=== PATIENT | female | born 1945 | race Caucasian/White ===

== ENCOUNTER 2016-07-22 12:42 | Emergency (ER) | payer MEDICARE, OTHER, BC ==
[~2016-07-22] VITALS: Ht 154.9 cm; Wt 68.0 kg
[~2016-07-22 12:42] MED LIST: APIX5TAB PO; ATOR10TA15 PO; BYST2.5T2 PO; CLON2TAB PO; E 101000 PO; ESTR.625 PO; FOLI1TAB4 PO; FURO20TA PO; LEVO.05 PO; METH2.5T PO; PANT40TA3 PO; PRED5TAB PO; TRAZ50TA12 PO; VIIB20TA PO; [UNRECOGNIZED DRUG - CODE] PO
[2016-07-22 12:49] VITALS: BP 122/55; PULSE 52; RESP 16; TEMP 97.5; O2SAT 96
[2016-07-22] MEDS ORDERED: HYDR-3516 PO (13:20)
[2016-07-22] MEDS ORDERED: ACYC800T PO (13:22)
[2016-07-22] MEDS ORDERED: HYDR-3534 PO (13:22)
[2016-07-22] MEDS ORDERED: PRED20 PO (13:22)
--- NOTE | 2016-07-22 13:30 | PD ---
HPI Chief Complaint: Back/ Neck Pain or Injury Time Seen by Provider: 13:15 Travel History International Travel<30 days: No Contact w/Intl Traveler<30days: No History of Present Illness HPI 71-year-old female presents to the emergency room for evaluation of left lower back pain that started 2 days ago without trauma or injury. Patient states she developed a rash in the same area yesterday. The pain is severe. Worse with palpation and made it difficult for her to sleep last night. She has been taking previously prescribed hydrocodone 5/325 without any relief in symptoms. Patient has had a shingles vaccine. She denies fever, chills, and body aches. PFSH Past Medical History Hx Anticoagulant Therapy: Yes Arthritis: Yes (RHEUMATOID) Atrial Fibrillation: Yes Anxiety: Yes Depression: Yes (ON MEDS) Heart Rhythm Problems: Yes ("HERE BEFORE WITH IRREGULAR HEART BEAT, DON'T KNOW WHAT IT WAS CALLED" ) Cardiovascular Problems: Yes High Cholesterol: Yes (RESOLVED AND TAKEN OFF MEDS PER PT) Diminished Hearing: No Gastrointestinal Disorders: Yes (HEMORRHOIDS) GERD: Yes Herniated Disk: Yes (C4, C5, C6) Neurologic: No Reproductive: Yes (HORMONE REPLACEMENT THERAPY) Respiratory: No Immunizations Current: Yes Pneumonia: Yes (CHILDHOOD) Thyroid Disease: Yes (HYPOTHYROID) Tetanus Vaccination: < 5 Years Influenza Vaccination: Yes ?: Not Menopausal: Yes : 0 Past Surgical History Abdominal Surgery: No Appendectomy: Yes Cardiac Surgery: No Ear Surgery: No Endocrine Surgery: No Eye Surgery: Yes (CATARACT) Genitourinary Surgery: No Gynecologic Surgery: Yes (HYSTERECTOMY) Hysterectomy: Yes Oral Surgery: No Thoracic Surgery: No Tonsillectomy: Yes Other Surgery: Yes Social History Alcohol Use: No Tobacco Use: No (QUIT 1982) Substance Use: No Allergies-Medications (Allergen,Severity, Reaction): Coded Allergies: Codeine (Verified Allergy, Severe, NAUSEA, 07/22/16) Reported Meds & Prescriptions Reported Meds & Active Scripts Active Reported Hydrocodone-Acetaminophen 5-325 mg Tab 1 Tab PO Q6H PRN Calcium Citrate + D3 (Calcium Citrate-Vitamin D) 250-200 Mg-Unit Tab 1 Tab PO BID E 1000 (Vitamin E) 1,000 Unit Cap 1 Tab PO DAILY Furosemide 20 Mg Tab 20 Mg PO DAILY Trazodone (Trazodone HCl) 50 Mg Tab 50 Mg PO HS Synthroid (Levothyroxine Sodium) 50 Mcg Tab 50 Mcg PO DAILY Bystolic (Nebivolol) 2.5 Mg Tab 2.5 Mg PO DAILY Atorvastatin (Atorvastatin Calcium) 10 Mg Tab 10 Mg PO HS Methotrexate 2.5 Mg Tab 2.5 Mg PO Q7D Prednisone 5 Mg Tab 5 Mg PO DAILY Premarin (Estrogens Conjugated) 0.625 Mg Tab 0.625 Mg PO DAILY Pantoprazole (Pantoprazole Sodium) 40 Mg Tab 40 Mg PO DAILY Eliquis (Apixaban) 5 Mg Tab 5 Mg PO BID Clonazepam 2 Mg Tab 2 Mg PO TID Viibryd (Vilazodone) 20 Mg Tab 20 Mg PO DAILY Review of Systems Except as stated in HPI: all other systems reviewed are Neg Physical Exam Narrative GENERAL: Well-nourished, well-developed female in no acute distress. Afebrile. Ambulatory.. SKIN: Focused skin assessment warm/dry. Erythematous papules and grouped vesicles in the T12 distribution on the left side. HEAD: Normocephalic. EYES: No scleral icterus. No injection or drainage. NECK: Supple, trachea midline. No JVD or lymphadenopathy. CARDIOVASCULAR: Regular rate and rhythm without murmurs, gallops, or rubs. RESPIRATORY: Breath sounds equal bilaterally. No accessory muscle use. BACK: No obvious deformity. No CVA tenderness. Tenderness to palpation in the T12 dermatomal distribution. Data Data Last Documented VS Vital Signs Date Time Temp Pulse Resp B/P Pulse Ox O2 Delivery O2 Flow Rate FiO2 07/22/16 12:49 97.5 52 16 122/55 96 MDM Medical Decision Making Medical Screen Exam Complete: Yes Emergency Medical Condition: Yes Medical Record Reviewed: Yes Differential Diagnosis Shingles versus back strain versus muscle spasm Narrative Course 71-year-old female presents to the emergency room for evaluation of left lower back pain with associated rash that has been present for the past 2 days and one day, respectively. Patient is afebrile well-appearing in the emergency room. Physical exam reveals grouped vesicles and erythematous papules in the T12 distribution on the left side. It is externally tender to palpation. This is shingles. Patient will be discharged with prescription for acyclovir and prednisone. She was given Lortab 7.5/325 because she has been taking hydrocodone 5/325 without any relief in symptoms. Patient to follow up with her primary care physician or return to the emergency room for worsening symptoms. She understands and agrees with plan. Diagnosis Primary Impression: Herpes zoster Qualified Code: B02.9 - Herpes zoster without complication Referrals: Primary Care Physician Patient Instructions: General Instructions, Shingles (ED) Additional Instructions: Rest and drink plenty of fluids. Take acyclovir and prednisone as directed, until gone. Take Lortab as directed, as needed for pain. Follow-up with a primary care physician. Return to the emergency room for worsening symptoms. Med/Other Pt SpecificInfo: Prescription(s) given Scripts Hydrocodone-Acetaminophen (Lortab)7.5-325 Mg Tab1 Tab PO Q6H PRN (PAIN) #15 TAB Ref 0 Prov:Maxim Georges MD 07/22/16 Acyclovir 800 Mg [id number] Mg PO 5 TIMES A DAY 7 Days Ref 0 Prov:Maxim Georges MD 07/22/16 Prednisone 20 Mg Tab40 Mg PO DAILY #10 TAB Ref 0 Take 40 mg (2 tablets) daily for 5 days Prov:Maxim Georges MD 07/22/16 Disposition: 01 DISCHARGE HOME Condition: Stable Merlyn Timmons July 22, 2016 13:30
== END 2016-07-22 13:47 | disposition home or self-care (01) ==
LOC: PHEFT 12:42
DX: B02.9 Zoster without complications (principal); I48.91 Unspecified atrial fibrillation; F41.9 Anxiety disorder, unspecified; F32.9 Major depressive disorder, single episode, unspecified; K21.9 Gastro-esophageal reflux disease without esophagitis
CPT/HCPCS: 99283

== ENCOUNTER 2017-02-20 16:51 | Observation (INO) | payer MEDICARE, BC ==
[2017-02-20] VITALS (7 sets, daily range): BP systolic 99–136; BP diastolic 58–92; PULSE 54–154; RESP 12–18; TEMP 98.1–98.4; O2SAT 94–98
[~2017-02-20] VITALS: Ht 157.5 cm; Wt 73.0 kg
[~2017-02-20 16:51] MED LIST changes: +ACYC800T PO; -FOLI1TAB4 PO; +HYDR-3516 PO; +HYDR-3534 PO; +PRED20 PO
--- NOTE | 2017-02-20 17:23 | PD ---
HPI Chief Complaint: Chest Pain Time Seen by Provider: 17:08 Travel History International Travel<30 days: No Contact w/Intl Traveler<30days: No Traveled to known affect area: No History of Present Illness HPI 71 year old female presents to the emergency department for evaluation of intermittent chest pain. Patient states her past chest pain all started over the left scapula, radiating to the left chest and over to the left arm. She states has been intermittent over the past 2 weeks. She states that she is having it on the way here, but as soon his right the hospital, her chest pain went away. She is currently chest pain-free. Patient had a stress test done on May 03, 2015 which showed normal LV function, no significant coronary artery disease, mild 15-20% disease of the LAD and the ostium of the right coronary. Patient also reports history of anxiety, depression, atrial fibrillation. Upon arrival in exam room, patient's heart rate was from 120- 150. She sustained this until she was about to be given Cardizem when heart rate went down to 56. The patient remains chest pain-free. She denies any fevers or chills. No abdominal pain. No nausea, vomiting, diarrhea. She does report intermittent shortness of breath and reports mild shortness breath at this time. Moderate severity. Patient denies exacerbating or alleviating factors. Patient is currently on Eliquis. 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 [facility] Past Medical History Hx Anticoagulant Therapy: Yes Arthritis: Yes (RHEUMATOID) Atrial Fibrillation: Yes Anxiety: Yes Depression: Yes (ON MEDS) Heart Rhythm Problems: Yes ("HERE BEFORE WITH IRREGULAR HEART BEAT, DON'T KNOW WHAT IT WAS CALLED" ) Cardiovascular Problems: Yes High Cholesterol: Yes (RESOLVED AND TAKEN OFF MEDS PER PT) Diminished Hearing: No Gastrointestinal Disorders: Yes (HEMORRHOIDS) GERD: Yes Herniated Disk: Yes (C4, C5, C6) Neurologic: No Reproductive: Yes (HORMONE REPLACEMENT THERAPY) Respiratory: No Immunizations Current: Yes Pneumonia: Yes (CHILDHOOD) Thyroid Disease: Yes (HYPOTHYROID) Menopausal: Yes : 0 Past Surgical History Abdominal Surgery: No Appendectomy: Yes Cardiac Surgery: No Ear Surgery: No Endocrine Surgery: No Eye Surgery: Yes (CATARACT) Genitourinary Surgery: No Gynecologic Surgery: Yes (HYSTERECTOMY) Hysterectomy: Yes Oral Surgery: No Thoracic Surgery: No Tonsillectomy: Yes Other Surgery: Yes Social History Alcohol Use: No Tobacco Use: No (QUIT 1982) Substance Use: No Allergies-Medications (Allergen,Severity, Reaction): Coded Allergies: codeine (Unverified Allergy, Severe, NAUSEA, 02/20/17) Reported Meds & Prescriptions Reported Meds & Active Scripts Active Reported Hyoscyamine (Hyoscyamine Sulfate) 0.125 Mg Tab 0.125 Mg PO Q6H Hydrocodone-Acetaminophen 5-325 mg Tab 1 Tab PO Q6H PRN E 1000 (Vitamin E) 1,000 Unit Cap 1 Tab PO DAILY Furosemide 20 Mg Tab 20 Mg PO DAILY Synthroid (Levothyroxine Sodium) 50 Mcg Tab 50 Mcg PO DAILY Bystolic (Nebivolol) 2.5 Mg Tab 2.5 Mg PO DAILY Atorvastatin (Atorvastatin Calcium) 10 Mg Tab 10 Mg PO HS Methotrexate 2.5 Mg Tab 2.5 Mg PO Q7D Prednisone 5 Mg Tab 5 Mg PO DAILY Premarin (Estrogens Conjugated) 0.625 Mg Tab 0.625 Mg PO DAILY Pantoprazole (Pantoprazole Sodium) 40 Mg Tab 40 Mg PO DAILY Eliquis (Apixaban) 5 Mg Tab 5 Mg PO BID Clonazepam 2 Mg Tab 2 Mg PO TID Viibryd (Vilazodone) 20 Mg Tab 20 Mg PO DAILY Review of Systems Except as stated in HPI: all other systems reviewed are Neg Physical Exam Narrative GENERAL: Well-nourished, well-developed female patient, afebrile. SKIN: Focused skin assessment warm/dry. HEAD: Normocephalic. Atraumatic. EYES: No scleral icterus. No injection or drainage. NECK: Supple, trachea midline. No JVD or lymphadenopathy. CARDIOVASCULAR: Regular rate and rhythm without murmurs, gallops, or rubs. Bilateral radial and pedal pulses are 2+. RESPIRATORY: Breath sounds equal bilaterally. No accessory muscle use. Lungs sounds are clear to auscultation. GASTROINTESTINAL: Abdomen soft, non-tender, nondistended. MUSCULOSKELETAL: No cyanosis, or edema. BACK: Nontender without obvious deformity. No CVA tenderness. Data Data Last Documented VS Vital Signs Date Time Temp Pulse Resp B/P (MAP) Pulse Ox O2 Delivery O2 Flow Rate FiO2 02/20/17 19:21 58 16 107/68 (81) 95 Room Air 12/16/17 16:56 98.4 Orders Orders Electrocardiogram (02/20/17 17:18) Basic Metabolic Panel (Bmp) (02/20/17 17:18) B-Type Natriuretic Peptide (02/20/17 17:18) Ckmb (Isoenzyme) Profile (02/20/17 17:18) Complete Blood Count With Diff (02/20/17 17:18) Magnesium (Mg) (02/20/17 17:18) Prothrombin Time / Inr (Pt) (02/20/17 17:18) Act Partial Throm Time (Ptt) (02/20/17 17:18) Troponin I (02/20/17 17:18) Chest, Single Ap (02/20/17 17:18) Ecg Monitoring (02/20/17 17:18) Bilateral Bp Monitoring (02/20/17 17:18) Iv Access Insert/Monitor (02/20/17 17:18) Oximetry (02/20/17 17:18) Oxygen Administration (02/20/17 17:18) Sodium Chloride 0.9% Flush (Ns Flush) (02/20/17 17:30) Diltiazem Inj (Cardizem Inj) (02/20/17 17:30) Admit Order (Ed Use Only) (02/20/17 19:33) Labs Laboratory Tests Test 02/20/17 17:30 White Blood Count 8.5 TH/MM3 Red Blood Count 3.42 MIL/MM3 Hemoglobin 10.4 GM/DL Hematocrit 30.9 % Mean Corpuscular Volume 90.5 FL Mean Corpuscular Hemoglobin 30.3 PG Mean Corpuscular Hemoglobin Concent 33.5 % Red Cell Distribution Width 15.1 % Platelet Count 131 TH/MM3 Mean Platelet Volume 10.0 FL Neutrophils (%) (Auto) 58.5 % Lymphocytes (%) (Auto) 31.5 % Monocytes (%) (Auto) 7.4 % Eosinophils (%) (Auto) 1.9 % Basophils (%) (Auto) 0.7 % Neutrophils # (Auto) 5.0 TH/MM3 Lymphocytes # (Auto) 2.7 TH/MM3 Monocytes # (Auto) 0.6 TH/MM3 Eosinophils # (Auto) 0.2 TH/MM3 Basophils # (Auto) 0.1 TH/MM3 CBC Comment DIFF FINAL Differential Comment Prothrombin Time 11.4 SEC Prothromb Time International Ratio 1.1 RATIO Activated Partial Thromboplast Time 28.9 SEC Blood Urea Nitrogen 10 MG/DL Creatinine 0.89 MG/DL Random Glucose 98 MG/DL Calcium Level 8.8 MG/DL Magnesium Level 2.0 MG/DL Sodium Level 142 MEQ/L Potassium Level 3.5 MEQ/L Chloride Level 106 MEQ/L Carbon Dioxide Level 26.2 MEQ/L Anion Gap 10 MEQ/L Estimat Glomerular Filtration Rate 62 ML/MIN Total Creatine Kinase 62 U/L Troponin I 0.05 NG/ML B-Type Natriuretic Peptide 243 PG/ML MDM Medical Decision Making Medical Screen Exam Complete: Yes Emergency Medical Condition: Yes Medical Record Reviewed: Yes Interpretation(s) Chest x-ray - no acute disease Differential Diagnosis Atrial fibrillation with RVR versus ACS versus chest wall pain versus anxiety versus pneumonia versus pneumothorax versus PE Narrative Course 71-year-old female presents to the emergency department for evaluation of intermittent chest pain over the past 2 weeks. She is currently chest pain- free at this time. EKG initially showed patient fibrillation/flutter, heart rate 120. Patient is ordered Cardizem 18 mg IV. However, before Cardizem was given, patient heart rate went to 56. Repeat EKG will be done. CBC, BMP, BNP, CK, troponin, magnesium, PTT, PT/INR, chest x-ray are ordered and pending. Repeat EKG shows sinus bradycardia, heart rate [address] depression in V4 , V5, V6 with inverted T waves. This appears unchanged since previous EKG. CBC shows slight anemia with hemoglobin 10.4, hematocrit 30.9. BMP is unremarkable. BNP is 243. CK is 62. Troponin is 0.05. Magnesium is 2.0. Coags are unremarkable. Chest x-ray shows no acute disease. Patient will be admitted the chest pain center for further evaluation. Diagnosis Primary Impression: Chest pain Qualified Codes: R07.9 - Chest pain, unspecified Admitting Information Admitting Physician Requests: Suzanne Aragon Feb 20, 2017 17:23
[2017-02-20] MEDS ORDERED: DILTIAZEM HCL 25 MG/5 ML VIAL IV PUSH ONE (17:30)
[2017-02-20] MEDS ORDERED: SODIUM CHLORIDE 0.9% FLUSH 10 ML FLUSH IVF PRN (17:30)
[2017-02-20] MEDS ORDERED: HYOS1TAB9 PO (17:51)
[2017-02-20 17:52] LABS: BASOPHIL # 0.1 TH/MM3 (0-0.2); BASOPHIL % 0.7 % (0.0-2.0); EOSINOPHIL # 0.2 TH/MM3 (0-0.4); EOSINOPHIL % 1.9 % (0.0-4.0); HEMATOCRIT 30.9 % (35.0-46.0); HEMO FLAGS DIFF FINAL; LYMPH % 31.5 % (9.0-44.0); LYMPHOCYTE # 2.7 TH/MM3 (1.0-4.8); MEAN CELL VOLUME 90.5 FL (80.0-100.0); MEAN CORPUSCULAR HEMOGLOBIN 30.3 PG (27.0-34.0); MEAN CORPUSCULAR HGB CONC 33.5 % (32.0-36.0); MONO % 7.4 % (0.0-8.0); NEUT % 58.5 % (16.0-70.0); PLATELET COUNT 131 TH/MM3 (150-450); RED BLOOD COUNT 3.42 MIL/MM3 (4.00-5.30); RED CELL DISTRIBUTION WIDTH 15.1 % (11.6-17.2); WHITE BLOOD COUNT 8.5 TH/MM3 (4.0-11.0)
[2017-02-20 18:06] LABS: APTT (PATIENT) 28.9 SEC (24.3-30.1); INTERNATIONAL NORMALIZED RATIO 1.1 RATIO; PROTHROMBIN TIME - PATIENT 11.4 SEC (9.8-11.6)
[2017-02-20 18:34] LABS: BICARBONATE 26.2 MEQ/L (21.0-32.0); POTASSIUM 3.5 MEQ/L (3.5-5.1)
--- NOTE | 2017-02-20 19:14 | RADRPT ---
EXAM DATE/TIME: 02/20/2017 18:09 [facility] COMPARISON: CHEST SINGLE AP, April 30, 2015, 0:29. INDICATIONS : Chest pain. MEDICAL HISTORY : Hypercholesterolemia. Depression. Anxiety. RA. A-fib. Anti coagulation therapy. Hypothyroidism. SURGICAL HISTORY : Appendectomy. ENCOUNTER: Initial ACUITY: 1 day PAIN SCORE: 10/10 LOCATION: Left chest FINDINGS: A single view of the chest demonstrates the lungs to be symmetrically aerated without evidence of mas s, infiltrate or effusion. The cardiomediastinal contours are unremarkable. Osseous structures are intact. CONCLUSION: No acute disease. Jet Levy MD on February 20, 2017 at 19:11 Board Certified Radiologist. This report was verified electronically.
[2017-02-20] MEDS ORDERED: SODIUM CHLORIDE 0.9% FLUSH 10 ML FLUSH IV FLUSH PRN (19:45)
[2017-02-20] MEDS: SODIUM CHLORIDE 0.9% FLUSH 10 ML FLUSH IV FLUSH SCH (21:00)
--- NOTE | 2017-02-20 21:33 | EKG ---
Date Performed: 02/20/2017 Time Performed: 17:29:22 PTAGE: 71 years EKG: SINUS BRADYCARDIA WITH SHORT MO INTERVAL ST DEVIATION AND MODERATE T-WAVE ABNORMALITY, CONS IDER ANTEROLATERAL ISCHEMIA ABNORMAL ECG PREVIOUS TRACING : 05/03/2015 08.25 Compared to previous tracing, sinus bradycardia has replace d atrial tachycardia, heart rate has slowed. DOCTOR: Alessio Nolen Interpretating Date/Time 02/26/2017 07:00:28
--- NOTE | 2017-02-20 21:34 | EKG ---
Date Performed: 02/20/2017 Time Performed: 17:17:36 PTAGE: 71 years EKG: ATRIAL TACHYCARDIA WITH RAPID VENTRICULAR RESPONSE ST/T-WAVE ABNORMALITY, CONSIDER ANTEROLA TERAL ISCHEMIA ABNORMAL ECG NO PREVIOUS TRACING DOCTOR: Alessio Nolen Interpretating Date/Time 02/20/2017 21:32:44
[2017-02-21] VITALS (7 sets, daily range): BP systolic 110–155; BP diastolic 58–104; PULSE 51–145; RESP 16–18; TEMP 97.7–98; O2SAT 96–97
[2017-02-21] MEDS ORDERED: ACETAMINOPHEN 500 MG CPLT PO PRN (07:45)
[2017-02-21] MEDS ORDERED: NITROGLYCERIN 0.4 MG SL 25 TABS/BTL SL PRN (07:45)
[2017-02-21] MEDS ORDERED: ONDANSETRON HCL 4 MG/2 ML VIAL IV PUSH PRN (07:45)
[2017-02-21] MEDS: SODIUM CHLORIDE 0.9% FLUSH 10 ML FLUSH IV FLUSH SCH (07:58)
--- NOTE | 2017-02-21 08:51 | HHI.HP ---
[facility] Primary Care Physician Timmy Santiago MD Chief Complaint Chest pain History of Present Illness 71 old female with history of A. fib, rheumatoid arthritis, and depression presents to the emergency room for further evaluation chest pain. Patient is somewhat of a poor historian. Reports episodes of gradual left posterior midback discomfort with radiation under left breast and left arm. Characterized as an ache. Onset last few months, increasing in frequency last couple of weeks. Initially discomfort occurred every other day, last week occurring daily , sometimes twice daily. Duration varies between 1-2 hours. No associated symptoms of nausea, vomiting, dyspnea, diaphoresis. Does not hurt to take a deep breath during episodes. No known precipitating or relieving factors. States she seen her airplane flight attendant, Dr. Spence, within the last couple of months and notified him of these episodes. Reports Dr. Spence was able to reproduce the pain with palpation in back, which also reproduced radiation under left breast. Endorses recent upper GI study to determine if pain related to GI track , results of testing not reviewed with her yet. Review of Systems General: No fatigue,weakness, fever, chills, recent illness. Has been in her general state of health, although does report a decrease in appetite the last week, not eating lunch due to decreased appetite. HEENT: No LORA, no vision changes, no nasal congestion or drainage, no dysphasia CV: As stated above. Has been chest pain free since arrival to ER and declines any further episodes during evening. History of paroxysmal Afib RESP: No SOB, cough, wheeze, or recent upper respiratory infections. GI: No nausea, vomiting, bowel changes, diarrhea, constipation, or pain. No unintentional weight gain or weight loss. : No dysuria, urgency, frequency, or history of kidney stones EXT: No lower leg edema, no paraesthesias MS: No discomfort or change in ROM. No known injury, recent fall, or past injuries of spine to her knowledge. NEURO: Endorses difficultly with memory. No difficulty with balance, LOC, or motor/sensory deficits. PSYCH: Endorses depression and taking her medications as prescribed. States taking her anti-anxiety medications generally twice daily. SKIN: No rashes, no concerning lesions, history of shingles spring 2016 reporting no post neuroglias. Past Family Social History Allergies: Coded Allergies: codeine (Unverified Allergy, Severe, NAUSEA, 02/20/17) Past Medical History Paroxymsal afib, hypthyroidsm, depression, RA, HLD, GERD Past Surgical History appendectomy, hysterectomy, tonsillectomy cataract surgery Reported Medications Reported Meds & Active Scripts Active Reported Hyoscyamine (Hyoscyamine Sulfate) 0.125 Mg Tab 0.125 Mg PO Q6H Hydrocodone-Acetaminophen 5-325 mg Tab 1 Tab PO Q6H PRN E 1000 (Vitamin E) 1,000 Unit Cap 1 Tab PO DAILY Furosemide 20 Mg Tab 20 Mg PO DAILY Synthroid (Levothyroxine Sodium) 50 Mcg Tab 50 Mcg PO DAILY Bystolic (Nebivolol) 2.5 Mg Tab 2.5 Mg PO DAILY Atorvastatin (Atorvastatin Calcium) 10 Mg Tab 10 Mg PO HS Methotrexate 2.5 Mg Tab 2.5 Mg PO Q7D Prednisone 5 Mg Tab 5 Mg PO DAILY Premarin (Estrogens Conjugated) 0.625 Mg Tab 0.625 Mg PO DAILY Pantoprazole (Pantoprazole Sodium) 40 Mg Tab 40 Mg PO DAILY Eliquis (Apixaban) 5 Mg Tab 5 Mg PO BID Clonazepam 2 Mg Tab 2 Mg PO TID PRN Viibryd (Vilazodone) 20 Mg Tab 20 Mg PO DAILY Active Ordered Medications Current Medications Medications (Trade) Dose Ordered Sig/Alexa Route Start Time Stop Time Status Last Admin (NS Flush) 2 ml UNSCH PRN IV FLUSH 02/20/17 19:45 (NS Flush) 2 ml BID IV FLUSH 02/20/17 21:00 02/21/17 07:58 (Tylenol) 500 mg Q4H PRN PO 02/21/17 07:45 (Zofran Inj) 4 mg Q6H PRN IV PUSH 02/21/17 07:45 (Nitrostat Sl) 0.4 mg Q5M PRN SL 02/21/17 07:45 (Aspirin) 325 mg DAILY PO 02/21/17 09:00 02/21/17 07:58 Family History Noncontributory early onset cardiovascular disease to her knowledge. Reports family culture keeps medical issues private. Social History Known hyperlipidemia. No known CAD, DM, or HTN. Former smoker, quitting over 35 years ago. Denies any alcohol intake. Endorses a sedentary lifestyle. . Past cardiac testing Follows with Dr. Spence. To her knowledge, she has not had any recent cardiac testing. 04/22/2015 Lexiscan No reversible perfusion defects to indicate stress-induced ischemia. EF 67%. 05/03/2015 Cardiac Catheterization (Dr. Spence) Conclusions: Normal LV function. No significant coronary artery disease, mild 15-20% disease of LAD and ostium of the right coronary. Plan: Continue medical management, caused the patient's atrial fibrillation and elevated troponin is uncertain. Cause of patient's chest pain is uncertain. Physical Exam Vital Signs Vital Signs Date Time Temp Pulse Resp B/P (MAP) Pulse Ox O2 Delivery O2 Flow Rate FiO2 02/21/17 07:26 98.0 56 18 125/70 (88) 97 02/21/17 04:00 51 02/21/17 03:33 98.0 58 17 110/58 (75) 96 02/21/17 00:15 57 02/20/17 23:15 57 02/20/17 22:51 98.1 55 17 129/58 (81) 94 02/20/17 22:24 54 18 103/58 (73) 94 Room Air 02/20/17 22:09 02/20/17 21:53 98 02/20/17 19:21 58 16 107/68 (81) 95 Room Air 02/20/17 17:44 57 18 02/20/17 17:40 65 18 105/65 (78) Room Air 99/65 (76) 02/20/17 17:40 98 Room Air 02/20/17 16:56 98.4 154 12 136/92 (107) 96 Physical Exam GENERAL: Alert WN, WD, NAD, pleasant, female somewhat of a poor historian. HEAD: NC, AT EYES: Sclera clear, conjunctiva without injection, pupils equal and round ENT: Mucous membranes pink and moist NECK: Supple, no masses, trachea midline CV: RRR, without murmur, rub, gallop, no JVD, S1-S2 no S3-S4. Chest wall pain nontender with palpitation. RESP: Clear lungs throughout bilateral, no crackles, wheeze, rhonchi, symmetrical chest rise, nonlabored, able to speak in full sentences ABD: Soft, NT, ND, no masses, positive bowel tones, obese BACK: No scoliosis EXT: Pulses +24, no dependent edema MS: Normal tone 4 extremities, no obvious deformities, full range of motion no tender areas identified with palpation NEURO: CN II through CN XII grossly intact, motor strength 5/5 PSYCH: A+O 3, pleasant affect, appropriate speech, mood, insight, and judgment. SKIN: Normal turgor, normal texture, no lesions, no rashes, brisk cap refill, even hair distribution Laboratory Laboratory Tests Test 02/20/17 17:30 02/20/17 21:15 02/20/17 23:28 White Blood Count 8.5 Red Blood Count 3.42 Hemoglobin 10.4 Hematocrit 30.9 Mean Corpuscular Volume 90.5 Mean Corpuscular Hemoglobin 30.3 Mean Corpuscular Hemoglobin Concent 33.5 Red Cell Distribution Width 15.1 Platelet Count 131 Mean Platelet Volume 10.0 Neutrophils (%) (Auto) 58.5 Lymphocytes (%) (Auto) 31.5 Monocytes (%) (Auto) 7.4 Eosinophils (%) (Auto) 1.9 Basophils (%) (Auto) 0.7 Neutrophils # (Auto) 5.0 Lymphocytes # (Auto) 2.7 Monocytes # (Auto) 0.6 Eosinophils # (Auto) 0.2 Basophils # (Auto) 0.1 CBC Comment DIFF FINAL Differential Comment Prothrombin Time 11.4 Prothromb Time International Ratio 1.1 Activated Partial Thromboplast Time 28.9 Blood Urea Nitrogen 10 Creatinine 0.89 Random Glucose 98 Calcium Level 8.8 Magnesium Level 2.0 Sodium Level 142 Potassium Level 3.5 Chloride Level 106 Carbon Dioxide Level 26.2 Anion Gap 10 Estimat Glomerular Filtration Rate 62 Total Creatine Kinase 62 51 95 Troponin I 0.05 0.05 0.04 B-Type Natriuretic Peptide 243 Result Diagram: 02/20/17 1730 02/20/17 173 Imaging Last Impressions Chest X-Ray 02/20/17 1718 Signed Impressions: Service Date/Time: Monday, February 20, 2017 18:09 - CONCLUSION: No acute disease. Jet Levy MD Course EKG 1st EKG 2nd and 3rd EKG Caprini VTE Risk Assessment Caprini VTE Risk Assessment: Mod/High Risk (score >= 2) Caprini Risk Assessment Model Point Value = 1 Point Value = 2 Point Value = 3 Point Value = 5 Age 41-60 Minor surgery BMI > 25 kg/m2 Swollen legs Varicose veins or History of unexplained or recurrent spontaneous Oral contraceptives or hormone replacement Sepsis (< 1 month) Serious lung disease, including pneumonia (< 1 month) Abnormal pulmonary function Acute myocardial infarction Congestive heart failure (< 1 month) History of inflammatory bowel disease Medical patient at bed rest Age 61-74 Arthroscopic surgery Major open surgery (> 45 min) Laparoscopic surgery (> 45 min) Malignancy Confined to bed (> 72 hours) Immobilizing plaster cast Central venous access Age >= 75 History of VTE Family history of VTE Factor V Leiden Prothrombin [id number] Lupus anticoagulant Anticardiolipin antibodies Elevated serum homocysteine Heparin-induced thrombocytopenia Other congenital or acquired thrombophilia Stroke (< 1 month) Elective arthroplasty Hip, pelvis, or leg fracture Acute spinal cord injury (< 1 month) Prophylaxis Regimen Total Risk Factor Score Risk Level Prophylaxis Regimen 0-1 Low Early ambulation 2 Moderate Order ONE of the following: *Sequential Compression Device (SCD) *Heparin 5000 units SQ BID 3-4 Higher Order ONE of the following medications: *Heparin 5000 units SQ TID *Enoxaparin/Lovenox 40 mg SQ daily (WT < 150 kg, CrCl > 30 mL/min) *Enoxaparin/Lovenox 30 mg SQ daily (WT < 150 kg, CrCl > 10-29 mL/min) *Enoxaparin/Lovenox 30 mg SQ BID (WT < 150 kg, CrCl > 30 mL/min) AND/OR *Sequential Compression Device (SCD) 5 or more Highest Order ONE of the following medications: *Heparin 5000 units SQ TID (Preferred with Epidurals) *Enoxaparin/Lovenox 40 mg SQ daily (WT < 150 kg, CrCl > 30 mL/min) *Enoxaparin/Lovenox 30 mg SQ daily (WT < 150 kg, CrCl > 10-29 mL/min) *Enoxaparin/Lovenox 30 mg SQ BID (WT < 150 kg, CrCl > 30 mL/min) AND *Sequential Compression Device (SCD) Assessment and Plan Assessment and Plan #1 Atypical chest pain-admitted chest pain center. Ruled out with 3 sets of EKGs, cardiac enzymes, and monitor on telemetry overnight. Seen and evaluated by Dr. Albino Carrasquillo. Chest discomfort highly unlikely to be cardiac related, especially with mild coronary artery disease noted in catheterization April 2015. Proceed with chemical stress test later this morning. If unremarkable, plan to discharge home with follow up with PCP and notifying Dr. Spence of admission to hospital. Patient is agreeable to plan of care. #2 Paroxysmal atrial fibrillation-continue Eliquis and Bystolic #3 Depression-continue Vilazodone #4 Hypothyroidism-continue Synthroid 11:55 Notified by RN patient complaining of chest discomfort. Will obtain EKG. Upon entering room patient resting comfortably in no acute distress. Patient not on telemetry at this time as she recently returned from Nuclear department having completed a cardiac stress test. Suspecting patient may be in afib with rapid ventricular rate. BP stable. According to , she has had similar discomforts in past. Because of these discomforts a cardiac stress test completed, which was unremarkable. However due to continued chest pain and A fib , she had a cardiac catheterization. The increase in frequency and severity is concerning them both. Further recommendations after obtaining and review of EKG. 12:15 EKG atrial tachycardia with rapid ventricular rate. Dr. Carrasquillo notified of EKG and above. Continue with plan for discharge later this afternoon with follow up with Dr. Spence next week. No changes in medications at this time. Lenora Pierce Feb 21, 2017 08:51
[2017-02-21] MEDS ORDERED: NEBIVOLOL 2.5 MG TAB PO SCH (09:00)
[2017-02-21] MEDS ORDERED: predniSONE 5 MG TAB PO SCH (09:00)
[2017-02-21] MEDS ORDERED: APIXABAN 5 MG TABLET PO SCH (09:00)
[2017-02-21] MEDS ORDERED: LEVOTHYROXINE SODIUM 50 MCG TAB PO SCH (09:00)
[2017-02-21] MEDS ORDERED: PANTOPRAZOLE SOD 40 MG DELAYED RELEASE TAB PO SCH (09:00)
[2017-02-21] MEDS ORDERED: FUROSEMIDE 20 MG TAB PO SCH (09:00)
[2017-02-21] MEDS ORDERED: VILAZODONE 20 MG PO SCH (09:00)
[2017-02-21] MEDS ORDERED: ASPIRIN 325 MG TAB PO SCH (09:00)
[2017-02-21] MEDS ORDERED: REGADENOSON INJ 0.4 MG/5 ML SYR ONE (10:03)
--- NOTE | 2017-02-21 10:43 | EKG ---
Date Performed: 02/20/2017 Time Performed: 23:31:28 PTAGE: 71 years EKG: Sinus rhythm LATERAL AND ANTEROLATERAL ST/T CHANGES, CONSIDER ISCHEMIA ABNORMAL ECG PREVIOUS TRACING : 02/20/2017 17.29 No significant change from previous tracing noted. DOCTOR: Alessio Nolen Interpretating Date/Time 02/21/2017 10:42:43
--- NOTE | 2017-02-21 10:55 | EKG ---
Date Performed: 02/20/2017 Time Performed: 21:09:14 PTAGE: 71 years EKG: SINUS BRADYCARDIA POSSIBLE LEFT VENTRICULAR HYPERTROPHY AND ST-T CHANGE, CANNOT RULE OUT AN TEROLATERAL ISCHEMIA ABNORMAL ECG PREVIOUS TRACING : 02/20/2017 17.29 No significant change from previous tracing noted. DOCTOR: Alessio Nolen Interpretating Date/Time 02/21/2017 10:55:14
--- NOTE | 2017-02-21 11:41 | RADRPT ---
EXAM DATE/TIME: 02/21/2017 10:01 [facility] COMPARISON: MYOCARDIAL PERF PHARM SPECT, GATED W/EF, April 22, 2015, 8:44. INDICATIONS : Substernal chest pain radiating to left arm. Angina. Atrial fibrillation. DOSE: 26.6 mCi Tc99m Myoview at stress. 8.5 mCi Tc99m Myoview at rest. 0.4 mg Lexiscan STRESS SYMPTOMS: Dyspnea. EJECTION FRACTION: 62% MEDICAL HISTORY : Hypothyroidism. Gastroesophageal reflux disease. SURGICAL HISTORY : Appendectomy. Hysterectomy. Tonsillectomy. ENCOUNTER: Initial ACUITY: 2 weeks PAIN SCALE: 4/10 LOCATION: Substernal chest TECHNIQUE: The patient underwent pharmacologic stress with infusion of prescribed dose. Continuous ECG tracing was monitored during stress. Gated SPECT imaging was performed after stress and conventional SPECT i maging was performed at rest. The examination was performed on a SPECT/CT scanner, both attenuation and non-corrected datasets were reviewed. FINDINGS: The gated cineloop images demonstrate hypokinesis of the cardiac apex. Left ventricular ejection frac tion is calculated at 62%. The cardiac SPECT stress and rest images demonstrate no fixed or reversibl e defects to suggest infarct or ischemia. CONCLUSION: 1. Hypokinesis of the cardiac apex. 2. No infarct or ischemia. 3. Normal ejection fraction equaling 62%. RISK CATEGORY: Low risk(less than 1% annual mortality rate). Bo Ron MD on February 21, 2017 at 11:35 Board Certified Radiologist. This report was verified electronically.
[2017-02-21] MEDS ORDERED: ACETAMINOPHEN/HYDROcodone 325 MG/5 MG TAB PO PRN (12:00)
--- NOTE | 2017-02-21 12:26 | HHI.DCPOC ---
Discharge Care Plan Diagnosis: (1) Atrial tachycardia determined by electrocardiography (2) Atypical chest pain Goals to Promote Your Health * To prevent worsening of your condition and complications * To maintain your health at the optimal level Directions to Meet Your Goals Take your medications as prescribed Follow your dietary instruction Follow activity as directed Keep your appointments as scheduled Take your immunizations and boosters as scheduled If your symptoms worsen call your PCP, if no PCP go to Urgent Care Center or Emergency Room Smoking is Dangerous to Your Health. Avoid second hand smoke Call the 24-hour hour crisis hotline for domestic abuse at Lenora Pierce Feb 21, 2017 12:26
[2017-02-21] MEDS ORDERED: METOPROLOL TARTRATE 25 MG TAB PO ONE (13:00)
--- NOTE | 2017-02-23 07:55 | TR ---
Date Performed: 02/21/2017 Time Performed: 10:13:48 DOCTOR: Corina Mcdonald DRUG LIST: CLINICAL HISTORY: CHEST PAIN REASON FOR TEST: CHEST PAIN REASON FOR ENDING: OBSERVATION: CONCLUSION: Lexiscan stress test was performed under standard four minute protocol. Radionuclid e was injected one minute prior to ending the test. ST changes were stable throughout the study. Nucl ear imaging and interpretation are pending. COMMENTS:
--- NOTE | 2017-02-23 08:02 | EKG ---
Date Performed: 02/21/2017 Time Performed: 12:08:19 PTAGE: 71 years EKG: ATRIAL FLUTTER/TACHYCARDIA WITH RAPID VENTRICULAR RESPONSE POSSIBLE RIGHT VENTRICULAR CONDU CTION DELAY SEPTAL MYOCARDIAL INFARCTION ST DEVIATION AND MODERATE T-WAVE ABNORMALITY, CONSIDER ANTER OLATERAL ISCHEMIA ST DEVIATION AND MODERATE T-WAVE ABNORMALITY, CONSIDER INFERIOR ISCHEMIA Since PREVIOUS TRACING patient is now in AF PREVIOUS TRACIN02/20/2017 23.31 DOCTOR: Corina Mcdonald Interpretating Date/Time 02/23/2017 08:01:27
--- NOTE | 2017-02-23 08:04 | EKG ---
Date Performed: 02/21/2017 Time Performed: 14:46:45 PTAGE: 71 years EKG: SINUS BRADYCARDIA WITH SHORT WY INTERVAL POSSIBLE RIGHT VENTRICULAR CONDUCTION DELAY LEFT V ENTRICULAR HYPERTROPHY AND ST-T CHANGE POSSIBLE SEPTAL MYOCARDIAL INFARCTION ABNORMAL ECG Since PREVIOUS TRACING ; back in Sinus rhythm DOCTOR: Corina Mcdonald Interpretating Date/Time 02/23/2017 08:03:10
== END 2017-02-21 15:44 | disposition home or self-care (01) ==
LOC: NEPC 16:51 → NEDA 19:34 → NEPFCDU 22:30
PROVIDERS: ADMIT Internal Medicine Interventional Cardiology; ATTEND Internal Medicine Interventional Cardiology
DX: I47.1 Supraventricular tachycardia (principal); R07.89 Other chest pain; I48.0 Paroxysmal atrial fibrillation; E78.5 Hyperlipidemia, unspecified; K21.9 Gastro-esophageal reflux disease without esophagitis; F32.9 Major depressive disorder, single episode, unspecified; E03.9 Hypothyroidism, unspecified; Z79.01 Long term (current) use of anticoagulants; Z87.891 Personal history of nicotine dependence; Z90.710 Acquired absence of both cervix and uterus
CPT/HCPCS: 71010; 78452; 80048; 82550; 83735; 83880; 84484; 85025; 85610; 85730; 93005; 93017; 99285; A9502; G0378; J2785; J7512